=== PATIENT | female | born 1935 | race Caucasian/White ===

== ENCOUNTER → 2019-04-28 11:19 | Outpatient (CLI) | payer MEDICARE, OTHER ==
[~2019-04-28 11:19] MED LIST: ALDACTONE25 MG PO; COUMADIN7.5 MG; FOSAMAX 70 MG T70 MG PO; K-TAB10 MEQ PO; PRAVASTATIN PO; TOPROL XL50 MG PO; ULTRAM50 MG PO
--- NOTE | 2019-05-07 08:42 | EC ---
PATIENT:VANESSA NIXON DATE OF SERVICE: 04/28/19 SEX: F MEDICAL RECORD: [id number] DATE OF : 39 [facility] AGE OF PATIENT: 83 ADMISSION DATE: 04/28/19 REFERRING PHYSICIAN: INTERPRETING PHYSICIAN: KRISTEL HOPKINS MD ECHOCARDIOGRAM REPORT ECHO CHARGES 4 ECHO COMPLETE Date: 04/28/19 CLINICAL DIAGNOSIS: MURMUR H/O A-FIB/CVA/HTN ECHOCARDIOGRAPHIC MEASUREMENTS (adult normal given) AC root (d.<3.7cm) 2.9 cm LV Septum d (<1.2 cm> 1.3 cm Valve Excursion 0.9 cm LV Septum (systole) 1.9 cm Left Atria (s.<4.0cm> 6.1 cm LVPW d(<1.2cm) 1.4 cm RV (d.<2.3cm) 2.9 cm LVPW (sytole) 2.0 cm LV diastole(<5.6CM) 5.7 cm MV E-F(>70mm/sec) cm LV systole 3.8 cm LVOT Diameter 1.9 cm MV exc.(>10mm) cm Est.ejection fraction (50-75%) % DOPPLER: LVIT cm/sec A 77.0 cm/sec E 151 cm/sec LA cm/sec RVSP 57.1 mmHg LVOT 61.0 cm/sec AOP1/2T m/s Asc. Ao 556.0cm/sec RVOT 46.0 cm/sec RA cm/sec PA 105 cm/sec AV Gradient Peak 124.0mmHg AV Mean 71.0 mmHg AV Area 0.3 cm MV Gradient Peak 13.0 mmHg MV Mean 3.9 mmHg MV Area cm COMMENTS: OP - HC Doughnut Glazier: 1 MILAN ALVARESOE Music Assistant: 3 Dr. Jay TAPE# PACS Pericardial Effusion N DATE OF SERVICE: Adequate 2-D echo, color-flow and spectral Doppler, and M-mode. Mild LVH is present. LV internal dimension is normal. LV is mildly globally hypo with EF mildly reduced at 40% to 45%. Aortic valve calcified with restriction of leaflet motion. Peak gradient is 120 mmHg, putting this in the severe range. Left atrium is dilated. Mitral valve is thickened. Moderate MR. Right-sided chamber is grossly normal. Mild TR. ECHOCARDIOGRAM REPORT [id number] VANESSA NIXON TRANSINT:[id number] Voice Confirmation ID: [id number] DOCUMENT ID: [id number] KRISTEL HOPKINS MD at [id number] CC: [id number] DICTATION DATE: 04/30/19 1352 MANAGEMENT SCIENTIST: 04/30/19 1603 DEP CLI 04/28/19 [place] [id number] [place] [id number]
== END | disposition home or self-care (01) ==
LOC: D.HCCARDIO 11:19
PROVIDERS: ATTEND Internal Medicine Interventional Cardiology
DX: R01.1 Cardiac murmur, unspecified (principal)